=== PATIENT | male | born 1980 | race Caucasian/White ===

== ENCOUNTER 2024-07-31 09:54 | Outpatient (CLI) | payer OTHER, SELFPAY ==
--- NOTE | ~2024-07-31 | MR_ITS ---
MRI of the abdomen: Clinical indication: Liver lesion. Technique: Coronal SSFSE ARC, WATER:coronal LAVA-FLEX, Coronal 2D FIESTA FatSat, Axial SSFSE BH ARC, Axial 3D DualEcho BH, Axial SSFSE-IR, Axial DWI b=500, Axial 2D FIESTA FatSat, pre and dynamic postco ntrast Axial LAVA ARC, postcontrast Coronal In and Opposed phase LAVA FLEX . Following intravenous ad ministration of 18 cc MultiHance gadolinium, T1-weighted fat-sat imaging was performed in the axial a nd coronal planes. Findings: Gallbladder is probably contracted with thickened wall and gallstone present.. The common b ile duct is normal in course and caliber. No filling defects are seen within the CBD. No evidence of intrahepatic biliary ductal dilatation. The pancreatic duct is normal in size. There is a 1.5 cm T2 hyperintense lesion in the posterior hepatic lobe. Suggestion of mild progressiv e postcontrast enhancement. Spleen, pancreas, adrenals, kidneys appear normal. The aorta and the para aortic regions appear normal. Impression: Somewhat indeterminate 1.5 cm T2 evidence of hepatic mass. This could reflect somewhat atypical heman gioma. Lesion is favored to represent a benign lesion. Six-month follow-up MR recommended to reassess . Contracted gallbladder with cholelithiasis and mild wall thickening. Consider HIDA scan if there is c oncern for acute cholecystitis. Reviewed, dictated and finalized at [facility]. Impression: Somewhat indeterminate 1.5 cm T2 evidence of hepatic mass. This could reflect s omewhat atypical hemangioma. Lesion is favored to represent a benign lesion. Si x-month follow-up MR recommended to reassess. Contracted gallbladder with cholelithiasis and mild wall thickening. Consider H JESSICA scan if there is concern for acute cholecystitis.
== END 2024-07-31 09:55 | disposition home or self-care (01) ==
PROVIDERS: Visit Provider Nurse Practitioner Family
DX: K76.9 Liver disease, unspecified (principal); K80.21 Calculus of gallbladder without cholecystitis with obstruction
CPT/HCPCS: 74183; A9577

== ENCOUNTER 2024-07-31 10:06 | Outpatient (CLI) | payer OTHER, SELFPAY ==
--- NOTE | ~2024-07-31 | US_ITS ---
Abdominal Sonogram: Real-time sonographic imaging of the abdomen was performed. Clinical History: Abdominal pain Findings: The liver appears normal with no evidence of bile duct dilatation. 9 mm hyperechoic hepati c mass suggests small hemangioma. Additional 1.4 cm hyperechoic masses also most likely hemangioma. M ain portal vein demonstrates normal direction of flow. The spleen is normal in size without evidence of focal lesion. The gallbladder is partially distended, and demonstrate echogenic, shadowing gallst ones. Gallbladder wall measures 4 mm in thickness. The common bile duct measures 5 mm. The visualize d pancreas, aorta, and IVC are unremarkable. The right kidney measures 10.8 cm in length and the lef t kidney measures 10.4 cm. There is no hydronephrosis or renal calculus. Impression: Cholelithiasis. Mild gallbladder wall thickening could reflect acute cholecystitis versus underdisten tion. Correlate clinically. Consider HIDA scan as indicated. Small hyperechoic hepatic lesions are most likely small hemangiomas. Reviewed, dictated and finalized at [facility]. Impression: Cholelithiasis. Mild gallbladder wall thickening could reflect acute cholecysti tis versus underdistention. Correlate clinically. Consider HIDA scan as indicat ed. Small hyperechoic hepatic lesions are most likely small hemangiomas.
== END 2024-07-31 10:07 | disposition home or self-care (01) ==
PROVIDERS: PCP Nurse Practitioner Family
DX: K80.20 Calculus of gallbladder without cholecystitis without obstruction (principal); K76.9 Liver disease, unspecified
CPT/HCPCS: 76700